=== PATIENT | male | born 1945 | race Caucasian/White ===

== ENCOUNTER 2018-08-12 16:57 | Emergency (ER) | payer MEDICARE ==
[~2018-08-12] VITALS: Ht 185.4 cm; Wt 94.0 kg
[~2018-08-12 16:57] MED LIST: ALPH-E400 UNIT PO; AVODART0.5 MG PO; C 500 PO; CARVEDILOL6.25 MG PO; DOCUSATE SOD100 MG PO; FEOSOL200 MG PO; LEVAQUIN750 MG PO; LOTENSIN HCT1 TAB PO; LOVENOX 4040 MG/0.4 SC; METFORMIN500 MG PO; NORVASC PO; PERCOCET 5/325M1 TAB PO; PRAVASTATIN20 MG PO
[2018-08-12] MEDS ORDERED: AMOXICILLIN875 MG PO (17:36)
[2018-08-12 17:40] VITALS: BP 151/85
[2018-08-12] MEDS ORDERED: AMLODIPINE BESY10 MG PO (17:44)
[2018-08-12] MEDS ORDERED: WAL-FEX ALLERG180 MG PO (17:44)
[2018-08-12] MEDS ORDERED: LEVOCETIRIZINE D5 MG PO (17:45)
[2018-08-12] MEDS ORDERED: ATORVASTATIN CA40 MG PO (17:46)
== END 2018-08-12 17:41 | disposition home or self-care (01) ==
LOC: ED 16:57
DX: H66.92 Otitis media, unspecified, left ear (principal); M19.90 Unspecified osteoarthritis, unspecified site; I10 Essential (primary) hypertension; E11.9 Type 2 diabetes mellitus without complications; I25.10 Atherosclerotic heart disease of native coronary artery without angina pectoris; Z95.1 Presence of aortocoronary bypass graft

== ENCOUNTER 2020-06-16 10:43 | Emergency (ER) | payer MEDICARE ==
[~2020-06-16] VITALS: Ht 182.9 cm; Wt 95.0 kg
[~2020-06-16 10:43] MED LIST changes: +AMLODIPINE BESY10 MG PO; +AMOXICILLIN875 MG PO; +ATORVASTATIN CA40 MG PO; +LEVOCETIRIZINE D5 MG PO; +WAL-FEX ALLERG180 MG PO
[2020-06-16 11:11] LABS: GFR 59 ML/MIN (>=60 (CALC)); GFR FOR AFR.AMER. > 60 ML/MIN (>=60 (CALC))
[2020-06-16 11:15] LABS: HEMATOCRIT 34.9 % (39.0-50.0); HEMOGLOBIN 10.7 g/dl (14.0-18.0); IMMATURE GRANULOCYTES 0.6 % (0.0-5.0); MEAN CELL VOLUME 81.9 fL CALC (80.0-100.0); MEAN CORPUSCULAR HGB 25.1 pG CALC (26.0-32.0); MEAN CORPUSCULAR HGB CONC 30.7 g/dL CAL (32.0-36.0); NEUT# 15.85 thou/uL (1.82-7.42); RED BLOOD COUNT 4.26 mill/uL (4.70-6.10); RED CELL DISTRI WIDTH 16.2 % (11.5-15.5)
[2020-06-16 11:27] LABS: PROTHROMBIN TIME 13.1 SECONDS (9.0-12.5)
[2020-06-16 11:28] LABS: INTERNATIONAL NORMALIZED RATIO 1.3 RATIO (0.7-1.3)
[2020-06-16 11:31] LABS: ALBUMIN 3.8 g/dL (3.2-5.0); ALKALINE PHOSPHATASE 104 u/l (38-126); ANION GAP 14 (6-22 (CALC)); BUN 13 mg/dL (8-23); BUN/CREATININE RATIO 13 (12-20 (CALC)); C-REACTIVE PROTEIN 2.8 mg/dL (0-0.9); CARBON DIOXIDE 29 mmol/l (22-30); CHLORIDE 98 mmol/l (95-108); GFR > 60 ML/MIN (>=60 (CALC)); GFR FOR AFR.AMER. > 60 ML/MIN (>=60 (CALC)); LIPASE 34 u/l (23-300); SGOT/AST 24 u/l (19-48); SODIUM 137 mmol/l (137-146); TOTAL PROTEIN 6.9 g/dL (6.3-8.2)
[2020-06-16 11:37] LABS: BILIRUBIN, TOTAL 1.6 mg/dL (0.0-1.4)
[2020-06-16 12:52] LABS: URINE BILIRUBIN - DIPSTICK NEGATIVE (NEGATIVE); URINE BLOOD DIPSTICK NEGATIVE (NEGATIVE); URINE COLOR YELLOW; URINE GLUCOSE - DIPSTICK NEGATIVE (NEGATIVE); URINE KETONE TRACE mg/dL (NEGATIVE); URINE LEUK ESTERASE NEGATIVE (NEGATIVE); URINE NITRITE - DIPSTICK NEGATIVE (Negative); URINE PH 8.5 (4.5-8.0); URINE PROTEIN - DIPSTICK 100 mg/dL (NEG-TRACE)
[2020-06-16 12:54] LABS: URINE MUCUS MODERATE hpf (NONE-FEW)
[2020-06-16 14:00] VITALS: BP 157/66
--- NOTE | 2020-06-18 13:53 | NUR ---
Final blood culture results faxed to [facility] at [phone] Patient admitted in unit 9YA Nurse: Georgie
--- NOTE | 2020-06-19 08:25 | NUR ---
Final blood culture results faxed to [facility] to nurse Jacques at [phone]
== END 2020-06-16 14:00 | disposition short-term general hospital (02) ==
LOC: ED 10:43
PROVIDERS: Family Medicine
DX: J18.9 Pneumonia, unspecified organism (principal); J86.9 Pyothorax without fistula; L03.115 Cellulitis of right lower limb; I10 Essential (primary) hypertension; E11.9 Type 2 diabetes mellitus without complications; I25.10 Atherosclerotic heart disease of native coronary artery without angina pectoris; Z95.1 Presence of aortocoronary bypass graft; Z79.84 Long term (current) use of oral hypoglycemic drugs; R78.81 Bacteremia; Z20.828 Contact with and (suspected) exposure to other viral communicable diseases
CPT/HCPCS: J0692; Q9967

== ENCOUNTER 2020-07-19 11:16 | Inpatient (IN) | payer MEDICARE ==
[~2020-07-19] VITALS: Ht 182.9 cm; Wt 89.0 kg
--- NOTE | 2020-07-19 11:40 | NUR ---
PATIENT TO ROOM VIA WHEELCHAIR.
--- NOTE | 2020-07-19 12:00 | NUR ---
PATIENT REPORTS NAUSEA AND LOOSE STOOLS SINCE 1999 YESTERDAY. WITH 8 LOOSE BM. PATIENT DENIES ANY VOMITING. BS ACTIVE X 4, ABD SOFT, NON-TENDER UPON PALPATION. PT AWARE OF PLAN OF CARE AND WAIT TIME. CALL FLOOD WITHIN REACH. WILL CONTINUE TO MONITOR.
[2020-07-19 12:34] LABS: HEMATOCRIT 33.8 % (39.0-50.0); HEMOGLOBIN 10.7 g/dl (14.0-18.0); IMMATURE GRANULOCYTES 0.3 % (0.0-5.0); MEAN CORPUSCULAR HGB 26.3 pG CALC (26.0-32.0); MEAN CORPUSCULAR HGB CONC 31.7 g/dL CAL (32.0-36.0); NEUT# 11.99 thou/uL (1.82-7.42); RED BLOOD COUNT 4.07 mill/uL (4.70-6.10); RED CELL DISTRI WIDTH 18.6 % (11.5-15.5)
--- NOTE | 2020-07-19 12:45 | NUR ---
PATIENT DENIES ANY NAUSEA AT THIS TIME. IV FLUIDS INFUSING WITH NO DIFFICULTY. PATIENT PROVIDED A URINAL AND IS AWARE OF NEED FOR URINE SAMPLE. CALL FLOOD WITHIN REACH.
[2020-07-19 12:46] LABS: ALBUMIN 3.6 g/dL (3.2-5.0); ALKALINE PHOSPHATASE 79 u/l (38-126); AMYLASE 57 u/l (30-110); ANION GAP 12 (6-22 (CALC)); BUN 15 mg/dL (8-23); BUN/CREATININE RATIO 15 (12-20 (CALC)); CARBON DIOXIDE 29 mmol/l (22-30); CHLORIDE 97 mmol/l (95-108); GFR > 60 ML/MIN (>=60 (CALC)); GFR FOR AFR.AMER. > 60 ML/MIN (>=60 (CALC)); LIPASE 15 u/l (23-300); SGOT/AST 24 u/l (19-48); SODIUM 134 mmol/l (137-146); TOTAL PROTEIN 6.9 g/dL (6.3-8.2)
[2020-07-19 12:48] LABS: BILIRUBIN, TOTAL 1.2 mg/dL (0.0-1.4)
[2020-07-19 12:54] LABS: ACT PARTIAL THROMBO TIME 29.4 SECONDS (20.0-32.5); INTERNATIONAL NORMALIZED RATIO 1.4 RATIO (0.7-1.3); PROTHROMBIN TIME 13.4 SECONDS (9.0-12.5)
--- NOTE | 2020-07-19 13:20 | NUR ---
PATIENT RESTING IN STRETCHER WITH EYES CLOSED AND AWAKENS TO VERBAL STIMULI. PT AWARE OF NEED FOR URINE AND STOOL SAMPLE. PT WHEELED TO BATHROOM TO OBTAIN SAMPLES.
[2020-07-19] MEDS ORDERED: ELIQUIS5 MG PO (13:25)
[2020-07-19] MEDS ORDERED: FUROSEMIDE20 MG PO (13:25)
[2020-07-19] MEDS ORDERED: FEROSUL325 MG PO (13:26)
[2020-07-19] MEDS ORDERED: HYDROCHLOROT25 MG PO (13:26)
[2020-07-19] MEDS ORDERED: LISINOPRIL2.5 MG PO (13:27)
[2020-07-19] MEDS ORDERED: PROTONIX40 M2 PO (13:28)
--- NOTE | 2020-07-19 13:30 | NUR ---
STOOL FOR HEMACULT WAS COLLECTED FROM STOOL SAMPLE.
[2020-07-19 13:47] LABS: URINE BLOOD DIPSTICK TRACE-LYSED (NEGATIVE); URINE COLOR YELLOW; URINE GLUCOSE - DIPSTICK NEGATIVE (NEGATIVE); URINE KETONE TRACE mg/dL (NEGATIVE); URINE LEUK ESTERASE NEGATIVE (NEGATIVE); URINE NITRITE - DIPSTICK NEGATIVE (Negative); URINE PROTEIN - DIPSTICK 30 mg/dL (NEG-TRACE); URINE SPECIFIC GRAVITY 1.025; URINE UROBILINOGEN - DIPSTICK 0.2 E.U./dL (0.2)
[2020-07-19 13:50] LABS: URINE BILIRUBIN - DIPSTICK NEGATIVE (NEGATIVE)
[2020-07-19 13:55] LABS: URINE RBC 0-2 RBC/hpf (0-5); URINE WBC 0-2 WBC/hpf (0-5)
--- NOTE | 2020-07-19 14:00 | NUR ---
WHILE PATIENT IS SLEEPING SPO2 DECREASES TO 88%. DR MARSH NOTIFIED.
--- NOTE | 2020-07-19 14:22 | NUR ---
MD AT BEDSIDE TO DISCUSS RESULTS AND NEED FOR ADMISSION.
--- NOTE | 2020-07-19 14:25 | NUR ---
PATIENT SHIVERING IN BED AND REPORTS INCREASED NAUSEA. PATIENT ENCOURAGED TO SLOW BREATHING AND STATES I FEEL LIKE MY LEG IS FLARING UP. PATIENT HAS CHRONIC 2 YEAR HISTORY OF CELLULITIS TO RIGHT LOWER EXTREMITY. LEG IS RED AND WARM TO THE TOUCH WITH +2 EDEMA TO RIGHT LEG AND FOOT. PER PATIENT IT LOOKS THE SAME THE PAST FEW WEEKS. TEMP RECHECK 99.5 ORALLY. PATIENT AWARE OF PLAN OF CARE AND WAIT TIME FOR ADMISSION.
--- NOTE | 2020-07-19 14:50 | NUR ---
PATIENT PLACED ON BED NAVARRETE. HE REPORTS MINIMAL NAUSEA AT THIS TIME, SHIVERING HAS SUBSIDED. IV TYLENOL INFUSING. CALL FLOOD WITHIN REACH.
--- NOTE | 2020-07-19 14:56 | NUR ---
PT REQUESTING TO REMAIN ON BED NAVARRETE FOR A FEW MORE MINUTES. PT RESTING COMFORTABLY WITH EYES CLOSED. SPO02 95% ON 2L NC.
--- NOTE | 2020-07-19 15:43 | NUR ---
REPORT REC FROM VIKKI MCKENZIE
--- NOTE | 2020-07-19 15:43 | NUR ---
PATIENT REPORT TO JONAH HART.
--- NOTE | 2020-07-19 16:00 | NUR ---
Admission Note Report Given to: JONAH HART Transported by: Wheelchair X Stretcher Transported with: X Nurse Transporter X Patent IV X O2 X Receptionist Clerk Location: ICU X MS2 PATIENT TO ROOM TRANSPORTED BY JONAH ALLEN IN STABLE CONDITION.
--- NOTE | 2020-07-19 16:05 | NUR ---
PT ARRIVED VIA STRETCHER ACCOMPANIED BY BELINDA MCKENZIE. A&O X3. NO DISTRESS NOTED. O2 VIA NC @2L IN PLACE, CURRENTLY 95% ON RA, O2 LEFT AT BEDSIDE IF NEEDED. STEADY GAIT OBSERVED WITH CANE AND STAND BY ASSIST. PT REPORTS TO HAVING LOOSE BM STARTING LAST NIGHT AFTER EATING AT TERRA FRIED CHICKEN. REDDNESS NOTED TO RLE. EXTREMITY REDDENED BUT NOT WARM TO TOUCH. PT REPORTS TO HAVE 4 VEINS REMOVED IN THE PAST WITH RECURRING REDDNESS AFTER 4TH VEIN REMOVAL. PITTING EDEMA NOTED TO BLE. CIPRO CONTINUED PER MAR ORDERS. NO OTHER NEEDED AT THIS TIME. ASSESSMENT COMPLETED. DISCUSSED POC. ORIENTED PT TO ROOM. [facility] OFFERED BUT REFUSED. CALL LIGHT IN REACH. CONTINUE TO MONITOR.
[2020-07-19 16:11] VITALS: BP 131/48
[2020-07-19 19:00] VITALS: BP 122/57
--- NOTE | 2020-07-19 19:35 | NUR ---
PATIENT ALERT AND ORIENTED X3. ABLE TO MAKE NEEDS KNOWN. RESPIRATIONS EASY ON ROOM AIR. SKIN WARM AND DRY. C/O ABD PAIN 310 AT THIS TIME. ON TELEMETRY RUNNING AFIB. PATIENT IS A DAILY WEIGHT. BED IN LOW POSITION. CALL LIGHT WITHIN REACH.
--- NOTE | 2020-07-20 | NUR ---
PATIENT RESTING WITH EYES CLOSED. RESPIRATIONS EASY. BED IN LOW POSITION. CALL LIGHT WITHIN REACH.
[2020-07-20 04:00] VITALS: BP 132/63
--- NOTE | 2020-07-20 04:00 | NUR ---
PATIENT RESTING WITH EYES CLOSED. RESPIRATIONS EASY. BED IN LOW POSITION. CALL LIGHT WITHIN REACH.
[2020-07-20 04:33] LABS: HEMOGLOBIN 10.2 g/dl (14.0-18.0); IMMATURE GRANULOCYTES 0.4 % (0.0-5.0); MEAN CELL VOLUME 85.3 fL CALC (80.0-100.0); MEAN CORPUSCULAR HGB 26.4 pG CALC (26.0-32.0); MEAN CORPUSCULAR HGB CONC 30.9 g/dL CAL (32.0-36.0); NEUT# 8.12 thou/uL (1.82-7.42); RED BLOOD COUNT 3.87 mill/uL (4.70-6.10); RED CELL DISTRI WIDTH 19.1 % (11.5-15.5)
[2020-07-20 04:51] LABS: ALBUMIN 3.1 g/dL (3.2-5.0); ALKALINE PHOSPHATASE 68 u/l (38-126); ANION GAP 10 (6-22 (CALC)); BUN 15 mg/dL (8-23); BUN/CREATININE RATIO 15 (12-20 (CALC)); CARBON DIOXIDE 29 mmol/l (22-30); CHLORIDE 99 mmol/l (95-108); GFR > 60 ML/MIN (>=60 (CALC)); GFR FOR AFR.AMER. > 60 ML/MIN (>=60 (CALC)); POTASSIUM 3.6 mmol/l (3.5-5.1); SGOT/AST 20 u/l (19-48); SODIUM 134 mmol/l (137-146); TOTAL PROTEIN 6.1 g/dL (6.3-8.2)
[2020-07-20 07:44] VITALS: BP 140/59
--- NOTE | 2020-07-20 07:44 | NUR ---
RECIEVED REPORT FROM Cathy CORRALES RN. PT RESTING ON SIDE OF BED UPON ENTERING ROOM. INTRODUCED SELF TO PT AND DISCUSSED POC. ASESSMENT AND VITAKS COMPLETED AT THIS TIME. BP 140/59, HR 85, O2 95% ON ROOM AIR. RESPIRATIONS ARE EVEN AND UNLABORED WITH NO SIGNS OF DISTRESS NOTED. LUNG SOUNDS ARE DIMINSHED. HEART RHYTHM IS NORMAL WITH TELE MONITORING. BOWEL SOUNDS ARE ACTIVE IN QUADRANTS, LAST REPORTED BM 07/20/2020. RADIAL ARE STRONG WITH NORMAL CAPILLARY REFILL. PEDAL PULSES WEAK. 1+ EDEMA IN LOWER EXTREMITIES PRESENT WITH MODERATED REDNESS TO RIGHT LEFT. SKIN REMAINS WARM/ DRY AND INTACT. #20 IN LFA FLUSHED, SITE APPEARS HEALTHY AND PATENT. PT DENIES ANY PAIN OR DISCOMFORTS AT THIS TIME. ALL SAFTEY PRECAUTIONS IN PLACE WITH CALL LIGHT IN REACH. WILL CONTINUE TO MONITOR
[2020-07-20 11:23] VITALS: BP 129/60
--- NOTE | 2020-07-20 12:03 | NUR ---
PT RESTING ON SIDE OF BED EATING LUNCH UPON ENTERING ROOM.PT IS A/O X3 RESPIRATIONS ARE EVEN AND UNLABORED WITH NO SIGNS OF DISTRESS NOTED. STOOL SAMPLE OBTAINED AT THIS TIME. PT DENIES ANY PAIN OR DISCOMFORTS AT THIS TIME. ALL SAEFTY PRECAUTIONS ARE IN PLACE WITH CALL LIGHT IN REACH. WILL CONTINUE TO MONITOR
[2020-07-20 13:30] LABS: C. DIFFICILE TOXIN A&B NEGATIVE (NEGATIVE)
--- NOTE | 2020-07-20 14:15 | NUR ---
C. DIFF TOX A/B DETECTED ABNORMAL. CONTACT PLUS PRECAUTIONS IN PLACE.
[2020-07-20 15:20] VITALS: BP 131/81
--- NOTE | 2020-07-20 16:55 | NUR ---
PT SLEEPING IN SEMI FOWLERS POSITION. RESPIRATIONS ARE EVEN AND UNLABORED WITH NO SIGNS OF DISTRESS NOTED. IV ANTIBIOTICS RUNNING WITH EASE. SITE APPEARS HEALTHY AND PATENT. NO SIGNS OF ANY PAIN OR DISCOMFORTS AT THIS TIME. ALL SAFETY PRECAUTIONS ARE IN PLACE WITH CALL LIGHT IN REACH.WILL CONTINUE TO MONITOR
[2020-07-20 19:03] VITALS: BP 125/73
--- NOTE | 2020-07-20 20:25 | NUR ---
Upon entering room, pt in bed awake. Alert and oriented. Able to verbalize needs. States 0/10 pain at time of writing. Pt c/o that room was cold, this nurse offered another blanket pt refused and asked that the door be shut when exiting because it helps from the cold entering room. Denies any N/V. Currently on Contact Precautions for CDIFF. IV site appears healthy and pt states no pain at site (LFA). EMAR rendered as ordered. Safety measures in place with call rodríguez placed at bedside within easy reach. Will continue to monitor for any new changes in condition.
[2020-07-21 00:09] VITALS: BP 129/67
--- NOTE | 2020-07-21 00:43 | NUR ---
Resident resting well in bed, easily aroused when entering room. Resident states 0/10 pain at time of writing. Will continue to monitor for any new changes in condition.
[2020-07-21 04:53] VITALS: BP 125/82
--- NOTE | 2020-07-21 04:53 | NUR ---
Pt sleeping well in bed, lights and t.v off. Will continue to monitor for any new changes in condition.
[2020-07-21 05:23] LABS: HEMATOCRIT 31.2 % (39.0-50.0); HEMOGLOBIN 9.6 g/dl (14.0-18.0); IMMATURE GRANULOCYTES 0.2 % (0.0-5.0); MEAN CELL VOLUME 84.8 fL CALC (80.0-100.0); MEAN CORPUSCULAR HGB 26.1 pG CALC (26.0-32.0); MEAN CORPUSCULAR HGB CONC 30.8 g/dL CAL (32.0-36.0); NEUT# 4.26 thou/uL (1.82-7.42); RED BLOOD COUNT 3.68 mill/uL (4.70-6.10); RED CELL DISTRI WIDTH 18.6 % (11.5-15.5)
[2020-07-21 05:52] LABS: ALBUMIN 2.8 g/dL (3.2-5.0); ALKALINE PHOSPHATASE 69 u/l (38-126); ANION GAP 8 (6-22 (CALC)); BILIRUBIN, TOTAL 0.6 mg/dL (0.0-1.4); BUN 14 mg/dL (8-23); BUN/CREATININE RATIO 15 (12-20 (CALC)); CARBON DIOXIDE 28 mmol/l (22-30); CHLORIDE 101 mmol/l (95-108); CREATININE 0.9 mg/dL (0.7-1.3); GFR > 60 ML/MIN (>=60 (CALC)); GFR FOR AFR.AMER. > 60 ML/MIN (>=60 (CALC)); POTASSIUM 3.5 mmol/l (3.5-5.1); SGOT/AST 26 u/l (19-48); SODIUM 134 mmol/l (137-146); TOTAL PROTEIN 5.6 g/dL (6.3-8.2)
--- NOTE | 2020-07-21 06:53 | NUR ---
Patient is screened for PT intervention and he has no needs at this time
[2020-07-21 07:30] VITALS: BP 131/73
--- NOTE | 2020-07-21 07:30 | NUR ---
RECIEVED REPORT FROM JASS MAHONEY. PT RESTING IN SMEI FOWLERS POSITION UPON ENTERING ROOM. INTRODUCED SELF TO PT AND DISCUSSED POC. RESPIRATIONS ARE EVEN AND UNLABORED WITH NO SIGNS OF DISTRESS NOTED. LUNG SOUNDS ARE CLEAR. HEART RHYTHM IS NORMAL WITH TELE IN PLACE. BOWEL SOUND SRAE ACTIVE IN ALL QUADRANTS, LAST REPORTED BM 07/20/20. RADIAL PULSES STRONG. PEDAL PULSES WEAK. PT PRESENTS WITH 2+ EDME TO RIGHT LEFT. SKIN IS COOL/DRY AND INTACT #20 IN LFA FLUSHED, SITE APPEARS HEALTHY AND PATENT. PT DENIES ANY PAIN OR DISCOMFORTS AT THIS TIME. CONTACT PLUS PRECAUTIONS IN PLACE FOR C.DIFF. PT COMPLAINS OF BEING COLD. OFFERED WARM BLANKET, PT REFUSED. ALL SAFETY PRECAUTIONS ARE IN PLACE WITH CALL LIGHT IN REACH. WILL CONTINUE TO MONITOR.
[2020-07-21] MEDS ORDERED: (None)125 MG PO (09:38)
[2020-07-21] MEDS ORDERED: PROBIOTIC1 TAB PO (09:51)
[2020-07-21 10:30] VITALS: BP 153/76
--- NOTE | 2020-07-21 12:09 | NUR ---
PT RESTING IN SEMI FOWLERS POSITION WATCHING TV. PT IS A/O X3. RESPIRATIONS ARE EVEN AND UNLABORED WITH NO SIGNS OF DISTRESS NOTED. DISCHARGE PAPERWORK COMPLETED. AWAITING FOR MEDICATIONS FROM [facility]. PT DENIES ANY PAIN OR DISCOMFORTS AT THIS TIME. ALL SAFETY PRECAUTIONS ARE IN PLACE WITH CALL LIGHT IN REACH. WILL CONTINUE TO MONITOR
--- NOTE | 2020-07-21 13:39 | NUR ---
PT EDUCATED ON DISHARGED INSTRUCTIONS AND NEW MEDIACTIONS VANCO AND PROBIOTIC. PT VERBAILZED UNDERSTANDING. MEDICATIONS DELIVERED BY [facility] AND GIVEN TO PT. IV REMOVED WITH CATHATER STILL INTACT. PT TOELRATED WELL. TELE MONITORING REMOVED. ER NOTIFIED. AWAITING FOR TRANSPORTATION AT THIS TIME. ALL SAFETY PRECAUTIONS ARE IN PLACE WIHT CLAL LIGHT IN REACH. WILL CONTINUE TO MONITOR
--- NOTE | 2020-07-21 14:42 | NUR ---
Discharge instructions given. Patient verbalizes understanding of same. Discharged in stable condition via Wheelchair to Home with family. All belongings sent with pt. PT DISCHARGE HOME VIA WHEELCHAIR IN STABLE CONDITION ACCOMPAINED BY FORREST MISHRA. PT DISCHARGED WITH ALL BELONGINGS AND DISCHARGE PAPERWORK. MEDICATIONS FROM [facility] IN PT POSSESSION
== END 2020-07-21 13:54 | disposition home or self-care (01) | DRG 372 ==
LOC: ED 11:16 → ED-I 14:13 → ED 14:18 → MS2 14:28
PROVIDERS: Nurse Practitioner; ADMIT Internal Medicine; ATTEND Internal Medicine
DX: A04.72 Enterocolitis due to Clostridium difficile, not specified as recurrent (principal); L03.115 Cellulitis of right lower limb; D64.9 Anemia, unspecified; I11.0 Hypertensive heart disease with heart failure; I50.9 Heart failure, unspecified; E11.9 Type 2 diabetes mellitus without complications; I48.91 Unspecified atrial fibrillation; K25.9 Gastric ulcer, unspecified as acute or chronic, without hemorrhage or perforation; I25.10 Atherosclerotic heart disease of native coronary artery without angina pectoris; Z95.1 Presence of aortocoronary bypass graft; Z79.84 Long term (current) use of oral hypoglycemic drugs; Z87.01 Personal history of pneumonia (recurrent); Z79.01 Long term (current) use of anticoagulants; Z20.828 Contact with and (suspected) exposure to other viral communicable diseases
CPT/HCPCS: G0328; G0378; J0131; J1650; Q9967

== ENCOUNTER 2020-11-19 16:25 | Emergency (ER) | payer MEDICARE ==
[~2020-11-19] VITALS: Ht 182.9 cm; Wt 85.0 kg
[~2020-11-19 16:25] MED LIST changes: +(None)125 MG PO; +ELIQUIS5 MG PO; +FEROSUL325 MG PO; +FUROSEMIDE20 MG PO; +HYDROCHLOROT25 MG PO; +LISINOPRIL2.5 MG PO; +PROBIOTIC1 TAB PO; +PROTONIX40 M2 PO
[2020-11-19] MEDS ORDERED: TRAMADOL HCL50 MG PO (17:52)
[2020-11-19] MEDS ORDERED: MUCINEX1200 MG PO (17:53)
[2020-11-19] MEDS ORDERED: BL MAGNESIUM250 MG PO (17:54)
[2020-11-19] MEDS ORDERED: CENTRUM SILVER PO (17:56)
[2020-11-19 21:36] VITALS: BP 138/69
== END 2020-11-19 21:36 | disposition home or self-care (01) ==
LOC: ED 16:25
DX: S90.31XA Contusion of right foot, initial encounter (principal); S90.511A Abrasion, right ankle, initial encounter; S90.811A Abrasion, right foot, initial encounter; I25.10 Atherosclerotic heart disease of native coronary artery without angina pectoris; I10 Essential (primary) hypertension; E11.9 Type 2 diabetes mellitus without complications; I48.91 Unspecified atrial fibrillation; Z95.1 Presence of aortocoronary bypass graft; Z79.84 Long term (current) use of oral hypoglycemic drugs; W20.8XXA Other cause of strike by thrown, projected or falling object, initial encounter; Y92.009 Unspecified place in unspecified non-institutional (private) residence as the place of occurrence of the external cause